=== PATIENT | male | born 1960 | race Caucasian/White ===

== ENCOUNTER 2019-08-03 12:17 | Emergency (ER) | payer BC, SELFPAY ==
[2019-08-03 12:22] VITALS: BP 156/97; PULSE 117; RESP 16; TEMP 36.8; O2SAT 97
--- NOTE | 2019-08-03 12:32 | ED.GENADUL_ITS ---
Discharge Plan Discharge Details Chief Complaint: Nk/Back Pain Primary Care Provider: Lilly,Local ED Provider: Naldo Pickering Home Meds and New Rx's Prescriptions: No Action diazepam 5 mg Tablet 5 mg PO PRNRF: 0 Humira 40 mg/0.8 mL Syringe Kit 40 mg SUBCUT .Q2 WEEKS RF: 0 rosuvastatin [Crestor] 20 mg Tablet 20 mg PO DAILY RF: 0 levothyroxine 100 mcg Capsule 100 mcg PO DAILY RF: 0 Medical Decision Making 59-year-old male with low back pain status post fall 3 days ago severe pain will obtain lumbar spine films treat symptomatically with Tylenol ibuprofen and lidocaine patch. Differential diagnosis is muscle spasm with sciatica versus less likely fracture versus extremely unlikely intra-abdominal pathology . 3:35 PM after multiple doses of pain medication patient reported relief in pain still point tender right lateral lower back with mild sciatica normal repeat neurologic exam no urinary incontinence no change in rectal sensation normal distal neurovascular exam lumbar films reviewed some degenerative changes but no acute fractures. Plan for steroid burst analgesia Lidoderm patches ibuprofen acetaminophen rest and early primary care follow-up return to emergency department for increasing pain incontinence numbness or other neurologic change or concern. HPI 59-year-old male past medical history of hypertension cholecystectomy cervical spinal fusion presents with 3 days of right lateral lower back pain after a slip and fall on stairs slid down 2-3 stairs pain is increased over the last 3 days worse with walking radiates down posterior right leg/. Patient took 5 mg of Valium a.m. today without relief. Patient denies head trauma nausea vomiting loss of consciousness numbness tingling weakness. No history of low back pain. Symptoms are acute radiate down right lower leg moving and palpation makes symptoms worse resting improves them. General Date/Time Provider Initiated Documentation: 08/03/19 12:31 . Related Data Home Medications Medication Instructions Recorded Confirmed adalimumab [Humira] 40 mg SUBCUT .Q2 WEEKS 08/03/19 08/03/19 diazepam 5 mg PO PRN 08/03/19 levothyroxine 100 mcg PO DAILY 08/03/19 08/03/19 rosuvastatin [Crestor] 20 mg PO DAILY 08/03/19 08/03/19 Allergies Allergy/AdvReac Type Severity Reaction Status Date / Time No Known Allergies Allergy Unverified 08/03/19 12:26 General Stated Complaint: Nk/Back Pain LEANDRO: 3 Review of Systems Narrative: No shortness of breath chest pain nausea vomiting diarrhea loss of consciousness fever chills All systems reviewed & are unremarkable except as noted in HPI and below PFSH Social History Smoking/Tobacco Use Status: Never Alcohol Intake: never Substance use type: does not use Exam Narrative Exam Narrative: Pulse oximetry reviewed by me and is normal [] Constitutional: Pt is in no acute distress. pt is well appearing. oriented to person, place, and time. Eyes: conjunctivae are normal. Pupils are equal, round, and reactive to light. No scleral icterus. extraocular muscles are intact Ears/Nose/Mouth/Throat: mucus membranes are moist. Musculoskeletal: neck is supple. normal range of motion in all extremities. Tenderness to palpation with mild muscle spasm right lateral back no midline tenderness no deformity mild gluteal tenderness normal distal reflexes strength and vascular status Cardiovascular: Normal rate and rhythm. No lower extremity edema [] Respiratory: effort is normal . pt exhibits no stridor or respiratory distress. [] GastrointestinaI: abdomen soft, +BS, nontender, -rebound, -guarding. Neurological: alert and oriented to person, place, and time. he has normal strength, no tremor. Skin: Skin is warm and dry. he is not diaphoretic. Distal perfusion in tact, warm extremities, cap refill ? 2 seconds. Hem/Lymph/Imm: No cervical LAD, no goiter, no conjunctival pallor Psych: normal mood and affect. behavior is normal Triage and nurse notes reviewed.[] Course Vital Signs Vital signs: Vital Signs Temperature 36.8 C 08/03/19 12:22 Pulse 117 H 08/03/19 12:22 Respiratory Rate 16 08/03/19 12:22 Blood Pressure 156/97 H 08/03/19 12:22 Pulse Oximetry 97 08/03/19 12:22 Temperature 36.8 C 08/03/19 12:22 Temperature Source Skin 08/03/19 12:22 Pulse 117 H 08/03/19 12:22 Respiratory Rate 16 08/03/19 12:22 Respiratory Effort Non-Labored 08/03/19 12:22 Blood Pressure 156/97 H 08/03/19 12:22 Blood Pressure Position Sitting 08/03/19 12:22 Pulse Oximetry 97 08/03/19 12:22 Pain Level 10 08/03/19 12:22
[2019-08-03] MEDS: Lidocaine 5% Patch 1 PATCH TP (12:47)
[2019-08-03] MEDS: Ketorolac 30 MG/ML VIAL IM (12:48)
[2019-08-03] MEDS: Acetaminophen 500 MG TAB 1000 MG PO (12:48)
--- NOTE | 2019-08-03 13:10 | DI.RAD_ITS ---
EXAM: XR LUMBAR SPINE COMPLETE CLINICAL HISTORY: BACK PAIN TECHNIQUE: COMPARISON: No exams were available for comparison FINDINGS: Five views were obtained. The intervertebral disc spaces are well maintained. There are hypertrophi c changes of the vertebral endplates at multiple levels most marked at L3-4. There are facet hypertr ophic degenerative changes also seen throughout the lumbar spine most prominent in the lower lumbar r egion. There is a bilateral spondylolysis of L5 without significant spondylolisthesis. No acute fracture seen. IMPRESSION: Degenerative changes, no evidence of acute fracture. Bilateral L5 spondylolysis without spondylolisthesis.
[2019-08-03] MEDS: MORPHine 10 MG/ML VIAL 8 MG IM (14:04)
[2019-08-03] MEDS: predniSONE 20 MG TAB 60 MG PO (15:49)
[2019-08-03 16:03] VITALS: BP 132/68; PULSE 78; RESP 18; TEMP 36.8; O2SAT 99
== END 2019-08-03 16:00 | disposition home or self-care (01) ==
PROVIDERS: Emergency Provider Emergency Medicine
DX: M54.5 Low back pain (principal); W10.8XXA Fall (on) (from) other stairs and steps, initial encounter
CPT/HCPCS: 96372; 99284; 72110; 80320; 80329; J1885; J2270; J7512